=== PATIENT | female | born 1950 | race Caucasian/White ===

== ENCOUNTER 2018-12-29 12:16 | Inpatient (IN) | payer OTHER ==
[~2018-12-29] VITALS: Ht 165.1 cm; Wt 88.0 kg
[2019-01-22] MEDS ORDERED: CARVEDILOL3.125 MG PO (10:20)
[2019-01-22] MEDS ORDERED: LISINOPRIL10 MG PO (10:20)
[2019-01-22] MEDS ORDERED: ZOCOR20 MG PO (10:21)
[2019-01-29] MEDS ORDERED: PERCOCET 5-3251 EACH PO (13:49)
[2019-01-29] MEDS ORDERED: ELIQUIS2.5 MG PO (13:49)
[2019-01-29] MEDS ORDERED: CIPRO500 MG PO (13:49)
[2019-02-01] MEDS ORDERED: INTEGRA F CAPS1 EACH PO (14:03)
[2019-02-01] MEDS ORDERED: SIMVASTATIN20 MG PO (14:03)
[2019-02-01] MEDS ORDERED: ELIQUIS2.5 MG PO (14:03)
[2019-02-01] MEDS ORDERED: NORVASC2.5 M1 PO (14:03)
[2019-02-01] MEDS ORDERED: Coreg 3.125MG TABLET PO (14:03)
== END 2019-02-01 15:55 | DRG 470 ==
LOC: SURG 01-22 09:00 → O/R 01-27 06:00 → SURG 01-27 06:00
PROVIDERS: ADMIT Orthopaedic Surgery
PROC: 0MNN0ZZ Release Right Knee Bursa and Ligament, Open Approach (ICD-10-PCS; 2019-01-27)
PROC: 0SRC0J9 Replacement of Right Knee Joint with Synthetic Substitute, Cemented, Open Approach (ICD-10-PCS; principal; 2019-01-27 12:30)
DX: M17.11 Unilateral primary osteoarthritis, right knee (principal); M80.00XA Age-related osteoporosis with current pathological fracture, unspecified site, initial encounter for fracture; D62 Acute posthemorrhagic anemia; M22.11 Recurrent subluxation of patella, right knee; E66.09 Other obesity due to excess calories; I10 Essential (primary) hypertension; M65.88 Other synovitis and tenosynovitis, other site; Z88.0 Allergy status to penicillin; Z88.8 Allergy status to other drugs, medicaments and biological substances

== ENCOUNTER → 2018-12-29 | Outpatient (CLI) | payer OTHER | END | disposition home or self-care (01) | LOC: MAMO-SONO 10:15 → SONOGRAMA 10:53 | DX: E11.00 Type 2 diabetes mellitus with hyperosmolarity without nonketotic hyperglycemic-hyperosmolar coma (NKHHC) (principal); E04.2 Nontoxic multinodular goiter ==

== ENCOUNTER → 2021-02-16 07:30 | Outpatient (CLI) | payer OTHER ==
[~2021-02-16 07:30] MED LIST: CARVEDILOL3.125 MG PO; CIPRO500 MG PO; Coreg 3.125MG TABLET PO; ELIQUIS2.5 MG PO; INTEGRA F CAPS1 EACH PO; LISINOPRIL10 MG PO; NORVASC2.5 M1 PO; PERCOCET 5-3251 EACH PO; SIMVASTATIN20 MG PO; ZOCOR20 MG PO
== END | disposition home or self-care (01) ==
LOC: NUCLEAR 01-24 10:00
PROVIDERS: ATTEND Internal Medicine
DX: E03.9 Hypothyroidism, unspecified (principal)
CPT/HCPCS: 78013; A9512

== ENCOUNTER 2021-03-28 08:07 | Outpatient (CLI) | payer OTHER | END 2021-03-28 08:14 | disposition home or self-care (01) | LOC: NUCLEAR 08:07 | PROVIDERS: ATTEND Internal Medicine | DX: I25.10 Atherosclerotic heart disease of native coronary artery without angina pectoris (principal) | CPT/HCPCS: 78452; 93017; A9500; J0153 ==

== ENCOUNTER 2025-04-13 09:34 | Inpatient (IN) | payer OTHER ==
[~2025-04-13] VITALS: Wt 85.3 kg
[2025-04-13 10:18] LABS: BASO % 1.0 % (0.1-1.2); EOS # 0.22 (0.04-0.54); EOS % 4.3 % (0.7-7.0); LYMPH # 1.35 (1.18-3.74); LYMPH % 26.3 % (19.3-53.1); MEAN PLATELET VOLUME 10.00 fl (9.4-12.4); MONO # 0.53 (0.24-0.82); MONO % 10.3 % (4.7-12.5); NEUT # 2.98 (1.56-6.13); NEUT % 57.9 % (34.0-71.1); RED CELL DISTRIBUTION WIDTH 13.7 % (11.6-14.4)
[2025-04-13] MEDS ORDERED: PLAVIX75 MG PO (10:30)
[2025-04-13] MEDS ORDERED: ISOSORBIDE MONO60 MG PO (10:30)
[2025-04-13] MEDS ORDERED: CLONAZEPAM2 M1 PO (10:31)
[2025-04-13 10:43] LABS: COVID-19 AG NEGATIVE (NEGATIVE)
[2025-04-13 11:01] LABS: ALT/SGPT 28.0 U/L (12-78); AST/SGOT 24.0 U/L (15-37); BILIRUBIN TOTAL 0.72 mg/dL (0.3-1.2); BUN CREA RATIO 30.0 (7.0-25.0); CREATININE SERUM 0.64 mg/dL (0.55-1.02); GFR 90.22; GLOBULINA 3.4 G/DL (2.4-3.5); GLUCOSE FASTING 106.0 mg/dL (65-100); OSMOLALITY SERUM 290.0 MOSM/KG (275-295)
[2025-04-20] MEDS ORDERED: VANCOMYCIN HCL 1,000 MG VIAL ONE ×2 (09:45→11:23)
[2025-04-20] MEDS ORDERED: TRANEXAMIC ACID 100MG/1ML (1000MG) AMPUL ONE (10:51)
[2025-04-20] MEDS ORDERED: ONDANSETRON HCL 2 MG/ML VIAL IV PRN (12:15)
[2025-04-20] MEDS ORDERED: OxyCODONE HCL 5 MG TABLET (ROXICODONE) PO PRN (12:15)
[2025-04-20] MEDS ORDERED: SODIUM CHLORIDE 0.45 % 1,000 ML IV SCH (12:15)
[2025-04-20] MEDS ORDERED: MORPHINE SULFATE 4 MG/ML CARTRIDGE IV PRN (12:15)
[2025-04-20] MEDS ORDERED: MORPHINE SULFATE 4 MG/ML CARTRIDGE IV ONE (12:30)
[2025-04-20] MEDS ORDERED: ONDANSETRON HCL 2 MG/ML VIAL ONE (13:59)
[2025-04-20] MEDS ORDERED: GABAPENTIN 300 MG CAPSULE PO SCH (17:00)
[2025-04-20 17:45] VITALS: BP 148/78; O2SAT 97
[2025-04-20] MEDS ORDERED: ACETAMINOPHEN 500 MG GEL..CAP PO SCH (18:00)
[2025-04-20] MEDS ORDERED: CLONAZEPAM 1 MG TABLET PO SCH (21:00)
[2025-04-20] MEDS ORDERED: VANCOMYCIN HCL 1,000 MG in 0.9 % SODIUM CHLORIDE 250 ML IV SCH (21:00)
[2025-04-21 01:02] VITALS: BP 149/80; O2SAT 95
[2025-04-21 06:18] LABS: BASO % 0.4 % (0.1-1.2); EOS # 0.10 (0.04-0.54); EOS % 1.4 % (0.7-7.0); LYMPH # 1.25 (1.18-3.74); LYMPH % 17.0 % (19.3-53.1); MEAN PLATELET VOLUME 10.70 fl (9.4-12.4); MONO # 0.89 (0.24-0.82); NEUT # 5.06 (1.56-6.13); NEUT % 69.0 % (34.0-71.1); RED CELL DISTRIBUTION WIDTH 13.2 % (11.6-14.4)
[2025-04-21 06:48] LABS: MONO % 12.1 % (4.7-12.5)
[2025-04-21] MEDS ORDERED: ELIQUIS2.5 MG PO (08:25)
[2025-04-21] MEDS ORDERED: CIPRO500 MG PO (08:25)
[2025-04-21] MEDS ORDERED: PERCOCET 5-3251 EACH PO (08:25)
[2025-04-21 08:46] VITALS: BP 137/78; O2SAT 96
[2025-04-21] MEDS ORDERED: ATORVASTATIN CALCIUM 10 MG TABLET PO SCH (09:00)
[2025-04-21] MEDS ORDERED: CARVEDILOL 3.125 MG TABLET PO SCH (09:00)
[2025-04-21] MEDS ORDERED: ISOSORBIDE MONONITRATE 60 MG TABLET PO SCH (09:00)
[2025-04-21] MEDS ORDERED: APIXABAN 2.5 MG TABLET PO SCH (09:00)
[2025-04-21] MEDS ORDERED: AMLODIPINE BESYLATE 2.5 MG TABLET PO SCH (09:00)
[2025-04-21] MEDS ORDERED: LISINOPRIL 5 MG TABLET PO SCH (09:00)
[2025-04-21] MEDS ORDERED: SENNOSIDES 1 TAB TABLET PO SCH (09:00)
[2025-04-21 11:00] LABS: COVID-19 AG NEGATIVE (NEGATIVE)
[2025-04-21] MEDS ORDERED: Cyanocobalamin/Mecobalamin 1 TAB.SL SL SCH (17:00)
[2025-04-21] MEDS ORDERED: AMLODIPINE BESYLATE 5 MG TABLET PO SCH (17:00)
[2025-04-21 17:59] VITALS: BP 131/75; O2SAT 95
[2025-04-22 00:24] VITALS: BP 114/70; O2SAT 96
[2025-04-22 06:30] LABS: BASO % 0.3 % (0.1-1.2); EOS # 0.11 (0.04-0.54); EOS % 1.2 % (0.7-7.0); LYMPH # 1.79 (1.18-3.74); LYMPH % 19.9 % (19.3-53.1); MEAN PLATELET VOLUME 10.70 fl (9.4-12.4); MONO # 1.12 (0.24-0.82); NEUT # 5.90 (1.56-6.13); NEUT % 65.8 % (34.0-71.1); RED CELL DISTRIBUTION WIDTH 13.6 % (11.6-14.4)
[2025-04-22 06:37] LABS: MONO % 12.5 % (4.7-12.5)
[2025-04-22] MEDS ORDERED: LISINOPRIL 10 MG TABLET PO SCH (09:00)
[2025-04-22] MEDS ORDERED: IRON FUM,PS/FOLIC ACID/VITC/B3 1 CAP CAPSULE PO SCH (09:00)
[2025-04-22] MEDS ORDERED: VANCOMYCIN HCL 1,000 MG VIAL IV SCH (09:00)
[2025-04-22] MEDS ORDERED: VANCOMYCIN HCL 1,000 MG VIAL ONE ×2 (09:06→14:22)
[2025-04-22 17:28] VITALS: BP 98/64; O2SAT 96
[2025-04-23] MEDS ORDERED: VANCOMYCIN HCL 1,000 MG VIAL ONE (07:56)
[2025-04-23 08:00] VITALS: BP 106/65; O2SAT 96
== END 2025-04-23 14:38 | DRG 470 ==
LOC: SURG 04-20 09:00 → O/R 04-20 09:00 → SURG 04-20 09:30
PROVIDERS: ADMIT Orthopaedic Surgery; ATTEND Orthopaedic Surgery
PROC: 0SRD0J9 Replacement of Left Knee Joint with Synthetic Substitute, Cemented, Open Approach (ICD-10-PCS; principal; 2025-04-20 17:45)
DX: M17.12 Unilateral primary osteoarthritis, left knee (principal); D62 Acute posthemorrhagic anemia; I10 Essential (primary) hypertension; E66.9 Obesity, unspecified